=== PATIENT | male | born 1930 | race Caucasian/White ===

== ENCOUNTER 2018-03-30 08:26 | Inpatient (IN) | payer MEDICARE ==
[~2018-03-30] VITALS: Ht 180.3 cm; Wt 81.3 kg
[~2018-03-30 08:26] MED LIST: AMIODARONE200 MG PO; APRESOLINE 25MG25 MG PO; ASPIRIN 32325 MG/TAB PO; ASPIRIN 81M81 MG/TA2 PO; B-121000 MCG PO; B12 PO; CARDIZEM CD 12120 MG PO; HCTZ 25MG TAB25 MG PO; HCTZ 25MG25 MG PO; HCTZ PO; IMDUR 30MG30 MG/TAB PO; LASIX40 MG PO; LIPITOR 80MG80 MG PO; LOPRESSOR 225 MG/TAB PO; LOPRESSOR100 MG PO; LOW DOSE ASPIRI81 MG PO; METOPROLOL SUC100 M1 PO; NEXIUM40 MG PO; NITROSTAT0.4 MG/TAB SL; NORVASC 5MG5 MG/TAB PO; PLAVIX 75MG TAB75 MG PO; POTASSIUM CH2 MEQ/ML PO; PRAVACHOL 40MG40 MG PO; PRAVACHOL40 MG PO; PRINIVIL10 MG PO; PRINIVIL20 MG PO; PROTONIX 40MG T40 MG PO; RANEXA 500MG T500 MG PO; RT ADVAIR 528 DISKUS IH; RT SPIRIVA18 MCG IH; TOPROL XL 50MG50 MG PO; TOPROL XL100 MG PO; TOPROL XL25 MG PO; VITAMIN D2000 I1 PO; WELCHOL3.75 GM/Pa PO; ZESTRIL 20MG TA20 MG PO
[2018-04-02] VITALS (12 sets, daily range): BP systolic 132–172; BP diastolic 61–78; PULSE 68–83; TEMP 98–98.2
[2018-04-02 07:42] LABS: BASO % 0.2 % (0.0-2.0); EOS # 0.1 (0.0-0.7); EOS % 0.9 % (0-4.0); GRAN # 6.1 (1.4-6.5); GRAN % 71.7 % (42.2-75.2); HEMATOCRIT 40.1 % (42.0-52.0); HEMOGLOBIN 13.5 g/dl (13.5-18.0); LYMPH # 1.4 (1.2-3.4); LYMPH % 16.6 % (20.0-51.0); MEAN CELL VOLUME 97 fl (80.0-100.0); MEAN CORPUSCULAR HEMOGLOBIN 33 pg (27.0-31.0); MEAN CORPUSCULAR HGB CONC 34 g/dl (33.0-37.0); MEAN PLATELET VOLUME 8.9 fl (7.4-10.4); MONO # 0.9 (0.1-0.6); MONO % 10.4 % (1.7-9.3); PLATELET COUNT 177 K/mm3 (130-400); RED BLOOD COUNT 4.14 M/mm3 (4.20-5.60); REDCELL DISTRIBUTION WIDTH-CV 14.5 % (11.5-14.5)
[2018-04-02 07:55] LABS: CALCIUM 9.2 mg/dL (8.4-10.2); CREATININE, serum 1.06 mg/dL (0.66-1.25); POTASSIUM 3.9 mmol/L (3.4-5.0)
[2018-04-02] MEDS ORDERED: CARDIZEM120 MG PO (07:55)
[2018-04-02] MEDS ORDERED: TOPROL XL100 MG PO (08:00)
[2018-04-02] MEDS ORDERED: ZYLOPRIM 300MG300 MG PO (08:02)
[2018-04-02] MEDS ORDERED: TYLENOL W/COD1 UDTAB PO (08:03)
[2018-04-03] VITALS: BP 149/76; PULSE 93; TEMP 98
[2018-04-03 03:31] VITALS: BP 172/86; PULSE 93; TEMP 98.2
[2018-04-03 07:54] VITALS: BP 168/84; PULSE 83; TEMP 97.9
== END 2018-04-03 09:40 | disposition home or self-care (01) | DRG 908 ==
LOC: INPTSU 04-02 06:22 → SURG 04-02 06:22 → EDSTATUS 04-02 08:30 → SDCO 04-02 08:30 → SURG 04-02 10:05
PROVIDERS: Surgery
PROC: 0WQF0ZZ Repair Abdominal Wall, Open Approach (ICD-10-PCS; 2018-04-02)
PROC: 0WPF0JZ Removal of Synthetic Substitute from Abdominal Wall, Open Approach (ICD-10-PCS; principal; 2018-04-02 08:30)
DX: T85.79XA Infection and inflammatory reaction due to other internal prosthetic devices, implants and grafts, initial encounter (principal); T83.718A Erosion of other implanted mesh to organ or tissue, initial encounter; I10 Essential (primary) hypertension; I25.10 Atherosclerotic heart disease of native coronary artery without angina pectoris; J45.909 Unspecified asthma, uncomplicated; Z95.1 Presence of aortocoronary bypass graft; Z85.46 Personal history of malignant neoplasm of prostate
CPT/HCPCS: J0690; J1100; J2405; J2704; J3010; J7030

== ENCOUNTER 2018-04-12 10:17 | Observation (INO) | payer MEDICARE ==
[~2018-04-12] VITALS: Ht 180.3 cm; Wt 78.6 kg
[~2018-04-12 10:17] MED LIST changes: +CARDIZEM120 MG PO; +TYLENOL W/COD1 UDTAB PO; +ZYLOPRIM 300MG300 MG PO
[2018-04-12 11:35] VITALS: BP 200/92; PULSE 94; TEMP 98
[2018-04-12 13:29] VITALS: BP 182/80
[2018-04-12 15:29] VITALS: BP 163/68; PULSE 91; TEMP 97.7
[2018-04-12 18:56] VITALS: BP 154/72; PULSE 85; TEMP 98.1
[2018-04-13 03:25] VITALS: BP 164/63; BP 173/67; PULSE 70; TEMP 98
[2018-04-13 07:59] VITALS: BP 164/55; PULSE 68; TEMP 97.7
== END 2018-04-13 12:15 | disposition home or self-care (01) ==
LOC: SURG 10:17
DX: T81.43XA Infection following a procedure, organ and space surgical site, initial encounter (principal); I10 Essential (primary) hypertension; I25.10 Atherosclerotic heart disease of native coronary artery without angina pectoris; I25.2 Old myocardial infarction; K21.9 Gastro-esophageal reflux disease without esophagitis; J45.909 Unspecified asthma, uncomplicated; F17.210 Nicotine dependence, cigarettes, uncomplicated; Z90.79 Acquired absence of other genital organ(s); Z85.828 Personal history of other malignant neoplasm of skin
CPT/HCPCS: J0690

== ENCOUNTER 2018-09-25 08:14 | Day surgery (SDC) | payer MEDICARE ==
[2018-09-25] VITALS (252 sets, daily range): BP systolic 100–180; BP diastolic 60–92; PULSE 54–120; TEMP 97.7–98.5; O2SAT 79–100
[~2018-09-25] VITALS: Ht 177.8 cm; Wt 77.8 kg
[2018-09-25 08:57] LABS: HEMATOCRIT 40.3 % (42.0-52.0); HEMOGLOBIN 13.3 g/dl (13.5-18.0); MEAN CELL VOLUME 96 fl (80.0-100.0); MEAN CORPUSCULAR HEMOGLOBIN 32 pg (27.0-31.0); MEAN CORPUSCULAR HGB CONC 33 g/dl (33.0-37.0); MEAN PLATELET VOLUME 9.3 fl (7.4-10.4); PLATELET COUNT 181 K/mm3 (130-400); RED BLOOD COUNT 4.19 M/mm3 (4.20-5.60); REDCELL DISTRIBUTION WIDTH-CV 14.7 % (11.5-14.5)
[2018-09-25 09:04] LABS: PROTHROMBIN TIME 11.6 SECONDS (9.7-12.8)
[2018-09-25 09:26] LABS: CALCIUM 9.3 mg/dL (8.4-10.2); CREATININE, serum 1.02 (0.66-1.25); POTASSIUM 3.9 mmol/L (3.4-5.0)
--- NOTE | 2018-09-25 11:32 | NUR ---
ALL MEDICATIONS GIVEN VORB WITH MD. SEE MERGE FOR ALL MEDICATION ADMIN TIMES. SEE MERGE FOR ALL RASS ASSESSMENTS DURING AND POST PROCEDURE.
--- NOTE | 2018-09-25 12:37 | NUR ---
Back from [employer] by bed. Mukesh CALL gave report. Right groin site closed with MINX, CD&I with good pedal pulses and soft to palpation. VSS. Denies pain and needs at this time
--- NOTE | 2018-09-25 13:00 | NUR ---
Patient brought back to [facility] on [address]. Bedside report given to JAKUB Lundberg. Right groin site clean, dry, and intact, soft with no oozing or hematoma present at this time. VS stable. Educated patient on importance of keeping right leg still and head flat on pillow. Bed in locked and lowest position, call light within reach.
--- NOTE | 2018-09-25 13:09 | NUR ---
Report given to NAIL FEEDER at this time. All questions and concerns addressed at this time.
--- NOTE | 2018-09-25 15:28 | NUR ---
Pt transferred to ICU bed 5 from Express Unit. Pt placed on cardaic monitor upon arrival to unit. Vitals stable upon arrival. Denies pain or any other discomfort. R femoral cath site with scant oozing drainage and no hematoma. Dressing intact.
--- NOTE | 2018-09-25 16:22 | NUR ---
Flat time up at 1620. Pt assisted to sit up in bed at 30 degrees. No excessive drainage or bleeding noted. Vitals stable. Denies pain or any other discomfort. Bed in low et locked position, call light within reach. R femoral cath site with scant drainage, intact, and no hematoma.
--- NOTE | 2018-09-25 19:36 | NUR ---
Bedside report given to JAKUB Lemos.
--- NOTE | 2018-09-25 19:40 | NUR ---
Bedside report received from JAKUB Mcgregor. Cath site assessed. Small amount of drainage on dressing. Transfer of care at this time.
--- NOTE | 2018-09-25 20:00 | NUR ---
Patient is awake in bed watching TV. He is alert and oriented. No complaints of pain. Cath site assessed, small amount of drainage remains the same size as marked on the dressing. Surrounding tissue is soft and nontender. Assessment complete. Lungs are clear in all guo with diminished bases. HR and rhythm regular with normal S1 and S2 heard. Bowel sounds are active x4. Pulses in extremities are +2. Vitals are stable, patient is hypertensive, but is receiving dose of hydralazine with evening meds. Patient is incontinent and leaks constantly. Patient is wearing a brief with personal pad inside. Patient says he will want to get up later to change it. Let him know to call when ready. No further needs at this time. Will continue to monitor. Call light within reach.
[2018-09-26] VITALS (292 sets, daily range): BP systolic 174–183; BP diastolic 73–93; PULSE 60–69; TEMP 98.2–98.5; O2SAT 90–96
--- NOTE | 2018-09-26 00:20 | NUR ---
Patient awake at this time and requesting assistance with the cords so he can change his brief. Assistance provided. Patient is independent in changing pad/brief. He is now back in bed. No complaints of pain, no signs of distress. Will continue to monitor. Call light within reach.
--- NOTE | 2018-09-26 04:00 | NUR ---
Patient awake again at this time and requesting to change brief and pad. Kerri in to assist. Patient is alert and oriented. No complaints of pain. Cath site continues to be soft and nonpainful with the same drainage noted on the dressing. No further needs at this time. Will continue to monitor. Call light within reach.
[2018-09-26 05:13] LABS: BASO % 0.3 % (0.0-2.0); EOS # 0.1 (0.0-0.7); EOS % 1.6 % (0-4.0); GRAN # 5.3 (1.4-6.5); GRAN % 71.5 % (42.2-75.2); HEMATOCRIT 38.7 % (42.0-52.0); HEMOGLOBIN 12.9 g/dl (13.5-18.0); LYMPH # 1.1 (1.2-3.4); MEAN CELL VOLUME 95 fl (80.0-100.0); MEAN CORPUSCULAR HEMOGLOBIN 32 pg (27.0-31.0); MEAN CORPUSCULAR HGB CONC 33 g/dl (33.0-37.0); MEAN PLATELET VOLUME 8.9 fl (7.4-10.4); MONO # 0.8 (0.1-0.6); MONO % 11.3 % (1.7-9.3); PLATELET COUNT 166 K/mm3 (130-400); RED BLOOD COUNT 4.06 M/mm3 (4.20-5.60); REDCELL DISTRIBUTION WIDTH-CV 14.6 % (11.5-14.5)
[2018-09-26 05:27] LABS: CREATININE, serum 0.94 (0.66-1.25); POTASSIUM 3.7 mmol/L (3.4-5.0)
--- NOTE | 2018-09-26 08:01 | NUR ---
Report received from Aminta CALL and care resumed.
--- NOTE | 2018-09-26 08:09 | NUR ---
Bedside report given to JAKUB Billy.
--- NOTE | 2018-09-26 08:15 | NUR ---
Assessment complete. See charting. Pt denies any pain or concerns. Helped up to chair with minimal assist. VSS. Will continue to follow.
--- NOTE | 2018-09-26 09:28 | NUR ---
Plan is to return home with Bruce as care support. Assess: Patient shares that he is fairly independent. Patient reports ability to drive. Patient declines the need for homehealth. Patient shares that his PCP Dr. Swanson in . Patient reports residing in with . Patient reports RX obtain from [facility], and short term from [facility] on [address]. Patient has a cpap and uses as needed. Patient denies any DPOA or Living Will. Action: Patient denies having any needs. Will continue to follow if need arise.
[2018-09-26] MEDS ORDERED: LIPITOR 80MG80 MG PO (09:59)
[2018-09-26] MEDS ORDERED: APRESOLINE50 MG PO (10:00)
[2018-09-26] MEDS ORDERED: ISOSORBIDE MON120 MG PO (10:02)
--- NOTE | 2018-09-26 10:05 | NUR ---
Dr Mendoza in to see pt. Plan will be for discharge.
--- NOTE | 2018-09-26 11:11 | NUR ---
Patient was being released. I spoke with him and his for just a moment.
--- NOTE | 2018-09-26 11:36 | NUR ---
Pt taken out to car for discharge.
== END 2018-09-26 11:30 | disposition home or self-care (01) ==
LOC: COL.CAR 08:14 → ICU 12:36 → COL.CAR 09-26 11:30
PROVIDERS: Internal Medicine Cardiovascular Disease; Nurse Practitioner
DX: I25.10 Atherosclerotic heart disease of native coronary artery without angina pectoris (principal); I87.1 Compression of vein; I25.82 Chronic total occlusion of coronary artery; Z95.1 Presence of aortocoronary bypass graft; Z95.5 Presence of coronary angioplasty implant and graft; I10 Essential (primary) hypertension; E78.5 Hyperlipidemia, unspecified; R94.39 Abnormal result of other cardiovascular function study; J90 Pleural effusion, not elsewhere classified; Z79.82 Long term (current) use of aspirin; Z79.02 Long term (current) use of antithrombotics/antiplatelets
CPT/HCPCS: OP; C9604; J0583; J1644; J2250; J3010; Q9967